=== PATIENT | male | born 1990 | race American Indian/Alaskan Native ===

== ENCOUNTER 2016-07-25 00:50 | Inpatient (IN) | payer OTHER ==
[2016-07-25 02:13] LABS: Basophils % (Auto) 1.3 % (0.0-1.8); Eosinophils % (Auto) 1.7 % (0.0-4.3); Hematocrit 44.3 % (35.5-45.6); Hemoglobin 14.8 gm/dl (11.8-15.2); Mean Corpuscular HGB Conc 34 % (32-34); Mean Corpuscular Hemoglobin 28 pg (28-32); Mean Corpuscular Volume 85 fl (84-94); Platelet Count 225 K/mm3 (140-440); Red Blood Count 5.21 M/mm3 (3.65-5.03); Red Cell Distribution Width 12.8 % (13.2-15.2)
[2016-07-25 02:20] LABS: Anion Gap 19 mmol/L; BUN/Creatinine Ratio 12.72; Blood Urea Nitrogen 14 mg/dL (9-20); Calcium 9.9 mg/dL (8.4-10.2); Carbon Dioxide 29 mmol/L (22-30); Chloride 100.2 mmol/L (98-107); Glucose 87 mg/dL (75-100); Potassium 4.7 mmol/L (3.6-5.0); Sodium 143 mmol/L (137-145)
[2016-07-25 02:26] LABS: INR 1.07 (0.87-1.13)
[2016-07-25 02:27] LABS: Partial Thromboplastin Time 31.5 Sec. (24.2-36.6)
[2016-07-25] MEDS ORDERED: BABY ASPIRIN PO ONE (06:44)
[2016-07-25 06:45] LABS: Creatine Kinase MB 1.6 ng/mL (0.0-4.0)
--- NOTE | 2016-07-25 06:55 | XRay Report ---
FINAL REPORT PROCEDURE: XR CHEST ROUTINE 2V TECHNIQUE: PA and lateral chest radiographs were obtained. CPT 08036 HISTORY: chest pain COMPARISON: No prior studies are available for comparison. FINDINGS: Heart: Normal. Mediastinum/Vessels: Normal. Lungs/Pleural space: Normal. Bony thorax: No acute osseous abnormality. Other: IMPRESSION: Normal examination.
--- NOTE | 2016-07-25 07:25 | Emergency Department Report ---
ED Chest Pain HPI - General Chief Complaint: Chest Pain Stated Complaint: CHEST PAIN Time Seen by Provider: 07/25/16 07:23 Source: patient Mode of arrival: Ambulatory Limitations: No Limitations - History of Present Illness Initial Comments: Laboratory Results - last 24 hr 07/25/16 07/25/16 07/25/16 01:39 01:39 01:39 WBC 6.0 RBC 5.21 H Hgb 14.8 Hct 44.3 MCV 85 MCH 28 MCHC 34 RDW 12.8 L Plt Count 225 Lymph % (Auto) 29.4 White % (Auto) 7.0 Eos % (Auto) 1.7 Baso % (Auto) 1.3 Lymph # 1.8 White # 0.4 Eos # 0.1 Baso # 0.1 Seg Neutrophils % 60.6 Seg Neutrophils # 3.6 PT 13.8 INR 1.07 APTT 31.5 Sodium 143 Potassium 4.7 Chloride 100.2 Carbon Dioxide 29 Anion Gap 19 BUN 14 Creatinine 1.1 Estimated GFR > 60 BUN/Creatinine Ratio 12.72 Glucose 87 Calcium 9.9 Total Creatine Kinase CK-MB (CK-2) CK-MB (CK-2) Rel Index Troponin T < 0.010 07/25/16 07/25/16 04:57 04:57 WBC RBC Hgb Hct MCV MCH MCHC RDW Plt Count Lymph % (Auto) White % (Auto) Eos % (Auto) Baso % (Auto) Lymph # White # Eos # Baso # Seg Neutrophils % Seg Neutrophils # PT INR APTT Sodium Potassium Chloride Carbon Dioxide Anion Gap BUN Creatinine Estimated GFR BUN/Creatinine Ratio Glucose Calcium Total Creatine Kinase 343 H CK-MB (CK-2) 1.6 CK-MB (CK-2) Rel Index 0.4 Troponin T < 0.010 The patient complains of left pectoral chest pain intermittently this a.m. which does not radiate and is nonpleuritic, described as sharp. He states that he had chest pain when he was 9 years old but not subsequently. He does not recall a prior EKG. He denies any associated symptoms such as nausea or dizziness sweating or dyspnea. He is asymptomatic at this time. MD Complaint: chest pain -: Gradual Onset: during rest Pain Location: left chest Pain Radiation: none Severity: mild Quality: sharp Consistency: intermittent Improves With: nothing Worsens With: nothing re: denies: nausea, vomting, diaphoresis Other Symptoms: denies: cough Treatments Prior to Arrival: none - Related Data Allergies Allergy/AdvReac Type Severity Reaction Status Date / Time No Known Allergies Allergy Verified 07/25/16 01:27 RICK score - Rick Score Age > 65: (0) No Aspirin use within the Past 7 Days: (0) No 3 or more CAD Risk Factors: (0) No 2 or more Angina events in past 24 hrs: (0) No Known CAD with more than 50% Stenosis: (0) No Elevated Cardiac Markers: (0) No ST Deviation Greater than 0.5mm: (1) Yes RICK Score: 1 ED Review of Systems ROS: Stated complaint: CHEST PAIN Other details as noted in HPI Constitutional: denies: chills, fever Eyes: denies: eye pain, eye discharge, vision change ENT: denies: ear pain, throat pain Respiratory: denies: cough, shortness of breath, wheezing Cardiovascular: as per HPI, chest pain. denies: palpitations Endocrine: no symptoms reported Gastrointestinal: denies: abdominal pain, nausea, diarrhea Genitourinary: denies: urgency, dysuria Musculoskeletal: denies: back pain, joint swelling, arthralgia Skin: denies: rash, lesions Neurological: denies: headache, weakness, paresthesias Psychiatric: denies: anxiety, depression Hematological/Lymphatic: denies: easy bleeding, easy bruising ED Past Medical Hx - Past Medical History Previous Medical History?: No - Surgical History Past Surgical History?: No - Social History Smoking Status: Never Smoker Substance Use Type: Alcohol ED Physical Exam - General Limitations: No Limitations General appearance: alert, in no apparent distress - Head Head exam: Present: atraumatic, normocephalic - Eye Eye exam: Present: normal appearance, PERRL, EOMI. Absent: scleral icterus - ENT ENT exam: Present: mucous membranes moist - Neck Neck exam: Present: normal inspection. Absent: tenderness, meningismus - Respiratory Respiratory exam: Present: normal lung sounds bilaterally. Absent: respiratory distress - Cardiovascular Cardiovascular Exam: Present: regular rate, normal rhythm. Absent: systolic murmur, diastolic murmur, rubs, gallop - GI/Abdominal GI/Abdominal exam: Present: soft, normal bowel sounds. Absent: distended, tenderness, guarding, rebound, rigid - Rectal Rectal exam: Present: deferred - Extremities Exam Extremities exam: Present: normal inspection, normal capillary refill. Absent: tenderness, pedal edema, joint swelling, calf tenderness - Back Exam Back exam: Present: normal inspection - Neurological Exam Neurological exam: Present: alert, oriented X3, CN II-XII intact. Absent: motor sensory deficit - Psychiatric Psychiatric exam: Present: normal affect, normal mood - Skin Skin exam: Present: warm, dry, intact, normal color. Absent: rash ED Course Vital Signs 07/25/16 07/25/16 00:50 05:35 Temperature 98.6 F 98.3 F Pulse Rate 83 66 Respiratory 18 14 Rate Blood Pressure 133/77 122/77 [Right] O2 Sat by Pulse 99 99 Oximetry - Reevaluation(s) Reevaluation #1: The patient is completely asymptomatic now. He is working on his third troponin which I think will be predictably normal. His EKG did have a variety of abnormalities some of them dynamic. However, his clinical picture is very atypical for acute coronary syndrome. It is also atypical for pericarditis. He will be admitted to the hospitalist service for further care and evaluation. 07/25/16 07:44 ED Medical Decision Making - Lab Data Result diagrams: 07/25/16 01:39 07/25/16 01:39 Laboratory Results - last 24 hr 07/25/16 07/25/16 07/25/16 01:39 01:39 01:39 WBC 6.0 RBC 5.21 H Hgb 14.8 Hct 44.3 MCV 85 MCH 28 MCHC 34 RDW 12.8 L Plt Count 225 Lymph % (Auto) 29.4 White % (Auto) 7.0 Eos % (Auto) 1.7 Baso % (Auto) 1.3 Lymph # 1.8 White # 0.4 Eos # 0.1 Baso # 0.1 Seg Neutrophils % 60.6 Seg Neutrophils # 3.6 PT 13.8 INR 1.07 APTT 31.5 Sodium 143 Potassium 4.7 Chloride 100.2 Carbon Dioxide 29 Anion Gap 19 BUN 14 Creatinine 1.1 Estimated GFR > 60 BUN/Creatinine Ratio 12.72 Glucose 87 Calcium 9.9 Total Creatine Kinase CK-MB (CK-2) CK-MB (CK-2) Rel Index Troponin T < 0.010 07/25/16 07/25/16 04:57 04:57 WBC RBC Hgb Hct MCV MCH MCHC RDW Plt Count Lymph % (Auto) White % (Auto) Eos % (Auto) Baso % (Auto) Lymph # White # Eos # Baso # Seg Neutrophils % Seg Neutrophils # PT INR APTT Sodium Potassium Chloride Carbon Dioxide Anion Gap BUN Creatinine Estimated GFR BUN/Creatinine Ratio Glucose Calcium Total Creatine Kinase 343 H CK-MB (CK-2) 1.6 CK-MB (CK-2) Rel Index 0.4 Troponin T < 0.010 - EKG Data -: EKG Interpreted by Me - EKG Data Serial EKGs were obtained. Her they are somewhat bizarre and unremarkable. The first EKG obtained at about 1250 shows T-wave inversions in the inferior leads with slight J-point elevation in V2 and probably nonsignificant Q waves which are somewhat diffuse. The second EKG obtained at 6:25 AM shows more J- point elevation in V2 through V5. There are no reciprocal changes. This is not the picture of a STEMI. However the T-wave inversions have now normalized. 07/25/16 07:43 - Radiology Data Radiology results: report reviewed interpreted by me: Chest x-ray was normal Critical care attestation.: If time is entered above; I have spent that time in minutes in the direct care of this critically ill patient, excluding procedure time. ED Disposition Clinical Impression: Abnormal EKG Chest pain Qualifiers: Chest pain type: unspecified Qualified Code(s): R07.9 - Chest pain, unspecified Disposition: -09 OP ADMIT IP TO THIS HOSP Is pt being admited?: Yes Does the pt Need Aspirin: Yes Condition: Stable Instructions: Chest Pain (ED) Referrals: PRIMARY CARE, [Primary Care Provider] - 3-5 Days Time of Disposition: 07:45
--- NOTE | 2016-07-25 08:16 | History and Physical Report ---
Medications and Allergies Allergies Allergy/AdvReac Type Severity Reaction Status Date / Time No Known Allergies Allergy Verified 07/25/16 01:27 Exam - Constitutional Vitals: Temp Pulse Resp BP Pulse Ox 98.3 F 66 14 122/77 99 07/25/16 05:35 07/25/16 05:35 07/25/16 05:35 07/25/16 05:35 07/25/16 05:35 Results - Labs CBC & Chem 7: 07/25/16 01:39 07/25/16 01:39 Labs: Abnormal lab results 07/25/16 07/25/16 Range/Units 01:39 04:57 RBC 5.21 H (3.65-5.03) M/mm3 RDW 12.8 L (13.2-15.2) % Total Creatine Kinase 343 H (55-170) units/L
[2016-07-25] MEDS ORDERED: LEXISCAN IV ONE ×2 (08:40→08:42)
[2016-07-25] MEDS ORDERED: MORPHINE IV PRN (08:46)
[2016-07-25] MEDS ORDERED: SODIUM CHLORIDE FLUSH SYRINGE 10 ML IV PRN (08:46)
[2016-07-25] MEDS ORDERED: NITROSTAT SL PRN (08:46)
[2016-07-25] MEDS ORDERED: D5NS 1,000 ML IV SCH (09:00)
[2016-07-25] MEDS ORDERED: PEPCID IV SCH (10:00)
--- NOTE | 2016-07-25 13:52 | History and Physical Report ---
History of Present Illness Date of examination: 07/25/16 Date of admission: 07/25/16 10:16 Chief complaint: Chest pain History of present illness: patient is a 26 years old with no past medical history who presents to the ED with chest pain.He states that the pain began today in the morning (07/25/2016) a dull aching pain, he describe the pain in the retrosternal area. He noticed the pain as he was getting out of bed. He discribe the pain consisted of a sharp pain that lasted around 1minute, followed by a dull pressure pain that would last around 6-7 minutes, the pain goes and comes, nothing makes it better or makes it worse. The pain do not radiated into his left arm or neck was not associated with nausea, vomiting or sweating. The patient did experience some chills after the pain ceased. Denies shortness of breath, nausea and vomiting Past History Past Medical History: No medical history Past Surgical History: No surgical history Social history: single, Lives alone (with Girlfriend ) Family history: hypertension Medications and Allergies Allergies Allergy/AdvReac Type Severity Reaction Status Date / Time No Known Allergies Allergy Verified 07/25/16 01:27 Active Meds: Active Medications Famotidine (Pepcid) 20 mg IV QDAY YOVANNY Last Admin: 07/25/16 13:49 Dose: 20 mg Dextrose/Sodium Chloride (D5ns) 1,000 mls @ 75 mls/hr IV DIRECT YOVANNY Morphine Sulfate (Morphine) 2 mg IV Q4HR PRN PRN Reason: Chest Pain Nitroglycerin (Nitrostat) 0.4 mg SL Q5M PRN PRN Reason: Chest Pain Sodium Chloride (Sodium Chloride Flush Syringe 10 Ml) 10 ml IV PRN PRN PRN Reason: LINE FLUSH Review of Systems Constitutional: chills, no weight loss, no weight gain, no fever, no sweats, no night sweats Ears, nose, mouth and throat: no ear pain, no ear discharge, no tinnitis, no decreased hearing Cardiovascular: chest pain, no orthopnea, no palpitations, no syncope, no lightheadedness, no shortness of breath, no dyspnea on exertion, no high blood pressure Respiratory: no cough, no cough with sputum, no excessive sputum, no hemoptysis Gastrointestinal: no abdominal pain, no nausea, no vomiting, no diarrhea, no constipation Genitourinary Male: no hematuria, no flank pain, no discharge Musculoskeletal: no neck stiffness, no neck pain, no shooting arm pain Integumentary: no rash, no pruritis, no redness Neurological: no paralysis, no weakness, no parathesias, no numbness, no tingling, no seizures Psychiatric: no anxiety, no memory loss, no change in sleep habits, no sleep disturbances Endocrine: no cold intolerance, no heat intolerance, no polyphagia Hematologic/Lymphatic: no easy bruising, no easy bleeding Allergic/Immunologic: no urticaria, no wheezing Exam - Constitutional Vitals: Temp Pulse Resp BP Pulse Ox 98.2 F 78 18 109/61 98 07/25/16 11:16 07/25/16 11:16 07/25/16 11:16 07/25/16 11:16 07/25/16 11:16 General appearance: Present: no acute distress, well-nourished - EENT Eyes: Present: PERRL, EOM intact ENT: hearing intact, clear oral mucosa, dentition normal - Neck Neck: Present: supple, normal ROM - Respiratory Respiratory effort: normal - Cardiovascular Heart Sounds: Present: S1 & S2. Absent: rub, click - Extremities Extremities: pulses symmetrical, No edema Peripheral Pulses: within normal limits - Abdominal General gastrointestinal: Present: soft, non-tender Male genitourinary: Present: normal - Rectal Rectal Exam: deferred - Integumentary Integumentary: Present: clear, warm, dry - Musculoskeletal Musculoskeletal: gait normal, strength equal bilaterally - Psychiatric Psychiatric: appropriate mood/affect, intact judgment & insight - Neurologic Neurologic: CNII-XII intact, moves all extremities Results - Labs CBC & Chem 7: 07/25/16 01:39 07/25/16 01:39 Labs: Laboratory Last Values WBC 6.0 K/mm3 (4.5-11.0) 07/25/16 01:39 RBC 5.21 M/mm3 (3.65-5.03) H 07/25/16 01:39 Hgb 14.8 gm/dl (11.8-15.2) 07/25/16 01:39 Hct 44.3 % (35.5-45.6) 07/25/16 01:39 MCV 85 fl (84-94) 07/25/16 01:39 MCH 28 pg (28-32) 07/25/16 01:39 MCHC 34 % (32-34) 07/25/16 01:39 RDW 12.8 % (13.2-15.2) L 07/25/16 01:39 Plt Count 225 K/mm3 (140-440) 07/25/16 01:39 Lymph % (Auto) 29.4 % (13.4-35.0) 07/25/16 01:39 [place] % (Auto) 7.0 % (0.0-7.3) 07/25/16 01:39 Eos % (Auto) 1.7 % (0.0-4.3) 07/25/16 01:39 Baso % (Auto) 1.3 % (0.0-1.8) 07/25/16 01:39 Lymph # 1.8 K/mm3 (1.2-5.4) 07/25/16 01:39 [place] # 0.4 K/mm3 (0.0-0.8) 07/25/16 01:39 Eos # 0.1 K/mm3 (0.0-0.4) 07/25/16 01:39 Baso # 0.1 K/mm3 (0.0-0.1) 07/25/16 01:39 Seg Neutrophils % 60.6 % (40.0-70.0) 07/25/16 01:39 Seg Neutrophils # 3.6 K/mm3 (1.8-7.7) 07/25/16 01:39 PT 13.8 Sec. (12.2-14.9) 07/25/16 01:39 INR 1.07 (0.87-1.13) 07/25/16 01:39 APTT 31.5 Sec. (24.2-36.6) 07/25/16 01:39 Sodium 143 mmol/L (137-145) 07/25/16 01:39 Potassium 4.7 mmol/L (3.6-5.0) 07/25/16 01:39 Chloride 100.2 mmol/L (98-107) 07/25/16 01:39 Carbon Dioxide 29 mmol/L (22-30) 07/25/16 01:39 Anion Gap 19 mmol/L 07/25/16 01:39 BUN 14 mg/dL (9-20) 07/25/16 01:39 Creatinine 1.1 mg/dL (0.8-1.5) 07/25/16 01:39 Estimated GFR > 60 ml/min 07/25/16 01:39 BUN/Creatinine Ratio 12.72 % 07/25/16 01:39 Glucose 87 mg/dL (75-100) 07/25/16 01:39 Calcium 9.9 mg/dL (8.4-10.2) 07/25/16 01:39 Total Creatine Kinase 343 units/L (55-170) H 07/25/16 04:57 CK-MB (CK-2) 1.6 ng/mL (0.0-4.0) 07/25/16 04:57 CK-MB (CK-2) Rel Index 0.4 (0-4) 07/25/16 04:57 Troponin T < 0.010 ng/mL (0.00-0.029) 07/25/16 07:28 - Imaging and Cardiology Chest x-ray: image reviewed (Normal) Assessment and Plan Assessment and plan: ASSESSMENT/PLAN 1. Chest Pain/costochondritis ACS was ruled out by serial troponins, he had a negative EKG negative chest x- ray. He went to have a nuclear stress test that was also negative. He was seen by cardiology and is on all the negative workup, his chest pain was noncardiac in origin. Chest pain is most likely due to costochondritis. The patient was subsequently discharged home and advised to take Tylenol as needed for body aches Plan of care discussed with patient/family: Yes
--- NOTE | 2016-07-25 15:03 | Consultation ---
History of Present Illness Consult date: 07/25/16 Consult reason: chest pain History of present illness: The patient presents to the hospital with a complaint of left pectoral chest pain intermittently this a.m. Patient has not previous history of chest pain. Patient denies radiation. The patient is sharp and located o nthe left side of the chest. Patient denies additional SOB, peripheral edema, orthopnea, pnd, palpitations, dizziness and sycnope. Past History Past Medical History: No medical history Past Surgical History: No surgical history Social history: denies: smoking, alcohol abuse, prescription drug abuse, IV drug use Family history: no significant family history Medications and Allergies Allergies Allergy/AdvReac Type Severity Reaction Status Date / Time No Known Allergies Allergy Verified 07/25/16 01:27 Active Meds: Active Medications Famotidine (Pepcid) 20 mg IV QDAY YOVANNY Last Admin: 07/25/16 13:49 Dose: 20 mg Dextrose/Sodium Chloride (D5ns) 1,000 mls @ 75 mls/hr IV DIRECT YOVANNY Morphine Sulfate (Morphine) 2 mg IV Q4HR PRN PRN Reason: Chest Pain Nitroglycerin (Nitrostat) 0.4 mg SL Q5M PRN PRN Reason: Chest Pain Sodium Chloride (Sodium Chloride Flush Syringe 10 Ml) 10 ml IV PRN PRN PRN Reason: LINE FLUSH Review of Systems All systems: negative (pertinent positives mentioned in HPI) Physical Examination Vital Signs Temp Pulse Resp BP Pulse Ox 98.6 F 83 18 133/77 99 07/25/16 00:50 07/25/16 00:50 07/25/16 00:50 07/25/16 00:50 07/25/16 00:50 General appearance: no acute distress HEENT: Positive: PERRL, EOMI Cardiac: Positive: Reg Rate and Rhythm, S1/S2 Lungs: Positive: clear to auscultation Abdomen: Positive: Soft, Active Bowel Sounds Extremities: Present: normal Results 07/25/16 01:39 07/25/16 01:39 Assessment and Plan Chest pain Patient has not significant risk factors for CAD EKG shows sinus rhythm with nonspecific STTW changes Troponin negative x 3 Nuclear stress test is negative for stress induced ischemia. EF 60% Recommend evaluation for non-cardiac causes of chest pain
[2016-07-25 17:23] VITALS: BP 116/65
== END 2016-07-25 17:45 | disposition home or self-care (01) | DRG 206 ==
LOC: ED 00:50 → 4A 10:16
PROVIDERS: ADMIT Internal Medicine; ATTEND Internal Medicine
DX: M94.0 Chondrocostal junction syndrome [Tietze] (principal); R94.31 Abnormal electrocardiogram [ECG] [EKG]; Z82.49 Family history of ischemic heart disease and other diseases of the circulatory system
CPT/HCPCS: 36415; 71020; 78452; 80048; 82550; 82553; 84484; 85025; 85610; 85730; 93005; 93010; 93017; 96374; A9502; J2785